=== PATIENT | female | born 1995 | race American Indian/Alaskan Native ===

== ENCOUNTER 2017-08-21 07:25 | Emergency (ER) | payer OTHER ==
[2017-08-21] MEDS ORDERED: TORADOL IM ONE (08:01)
[2017-08-21] MEDS ORDERED: PERCOCET 5/325 PO ONE (08:01)
--- NOTE | 2017-08-21 08:26 | Emergency Department Report ---
ED Female HPI - General Chief complaint: Abdominal Pain Stated complaint: ABDOMINAL PAIN Time Seen by Provider: 08/21/17 07:54 Source: patient Mode of arrival: Stretcher Limitations: No Limitations - History of Present Illness Initial comments: 21-year-old female with a past medical history of fibroids and dysmenorrhea with cycles presents to the hospital with complaints of severe suprapubic cramps secondary to menstrual pain. Patient started her menstrual cycle this a.m. Pain is moderate to severe in intensity, constant, cramping in nature, and no improvement with Aleve last night. She complains of just some brown spotting without significant bleeding at this time. Last month her period was one week early but otherwise normal. Her period this month is also one week early. Patient has a history of heavy menstrual cycles and has been diagnosed with fibroids visualized on ultrasound in March during a recent miscarriage evaluation. Patient is sexually active with one partner and intermittent condom use. She denies prior for STDs and states she is "checked irregularly". Her [employer] doctor is Dr. Tyson Rand affiliated - Related Data Previous Rx's Medication Instructions Recorded Last Taken Type HYDROcodone/APAP 5-325 [[place] 1 each PO Q6HR PRN #20 tablet 08/21/17 Unknown Rx 5/325] Ibuprofen [Motrin] 800 mg PO Q8HR PRN #30 tablet 08/21/17 Unknown Rx Allergies Allergy/AdvReac Type Severity Reaction Status Date / Time No Known Allergies Allergy Unverified 08/21/17 07:45 ED Review of Systems ROS: Stated complaint: ABDOMINAL PAIN Other details as noted in HPI Comment: All other systems reviewed and negative Other: Constitutional: No fevers chills Eyes: No eye pain visual changes ENT: No ear pain or throat pain Neck: Denies pain Respiratory: Denies cough wheezing shortness of breath Cardiovascular: Denies chest pain, palpitations, syncope GI: As per HPI : Denies dysuria Musculoskeletal: Denies back pain, joint swelling Skin: Denies rash, lesions, erythema Neurologic: Denies headache, numbness, weakness Psychiatric: Denies suicidal ideation, hallucinations ED Past Medical Hx - Past Medical History Additional medical history: miscariage, fibroid - Social History Smoking Status: Never Smoker - Medications Home Medications: Home Medications Medication Instructions Recorded Confirmed Last Taken Type HYDROcodone/APAP 5-325 [[place] 1 each PO Q6HR PRN #20 tablet 08/21/17 Unknown Rx 5/325] Ibuprofen [Motrin] 800 mg PO Q8HR PRN #30 tablet 08/21/17 Unknown Rx ED Physical Exam - General Limitations: No Limitations - Other Other exam information: General: No limitations, patient is alert in no acute distress Head exam: Atraumatic, normocephalic Eyes exam: Normal appearance ENT: Moist mucous membrane, normal oropharynx Neck exam: Normal inspection, full range of motion, no meningismus nontender Respiratory exam: Clear to auscultation bilateral, no wheezes, rales, crackles Cardiovascular: Normal rate and rhythm, normal heart sounds Abdomen: Soft, nondistended, mild suprapubic tenderness, with normal bowel sounds, no rebound, or guarding Extremity: Full range of motion normal inspection no deformity Back: Normal Inspection, full range of motion, no tenderness Neurologic: Alert, oriented x3, cranial nerves intact, no motor or sensory deficit Psychiatric: normal affect, normal mood Skin: Warm, dry, intact ED Course Vital Signs 08/21/17 08/21/17 08/21/17 07:38 08:12 08:15 Temperature 97.9 F Pulse Rate 86 Respiratory 14 Rate Blood Pressure 112/60 106/44 Blood Pressure [Left] O2 Sat by Pulse 97 99 100 Oximetry 08/21/17 08/21/17 08/21/17 08:18 08:30 08:34 Temperature 98.0 F Pulse Rate 85 Respiratory 18 18 Rate Blood Pressure 106/44 Blood Pressure 114/56 [Left] O2 Sat by Pulse 100 100 Oximetry 08/21/17 08/21/17 08/21/17 08:35 08:45 09:00 Temperature Pulse Rate Respiratory 18 Rate Blood Pressure 117/66 120/66 Blood Pressure [Left] O2 Sat by Pulse 100 100 Oximetry 08/21/17 08/21/17 09:16 09:30 Temperature Pulse Rate Respiratory Rate Blood Pressure 102/63 117/67 Blood Pressure [Left] O2 Sat by Pulse 96 100 Oximetry - Reevaluation(s) Reevaluation #1: 08/21/17 09:47 pt feeling better after ED treatment ED Medical Decision Making - Lab Data Result diagrams: 08/21/17 08:49 Lab Results 08/21/17 08/21/17 Range/Units 08:04 08:49 WBC 10.0 (4.5-11.0) K/mm3 RBC 4.65 (3.65-5.03) M/mm3 Hgb 11.5 (10.1-14.3) gm/dl Hct 36.4 (30.3-42.9) % MCV 78 L (79-97) fl MCH 25 L (28-32) pg MCHC 32 (30-34) % RDW 13.9 (13.2-15.2) % Plt Count 324 (140-440) K/mm3 Lymph % (Auto) Shirt Presser [place] % (Auto) Shirt Presser Eos % (Auto) Shirt Presser Baso % (Auto) Shirt Presser Lymph # Shirt Presser [place] # Shirt Presser Eos # Shirt Presser Baso # Shirt Presser Seg Neutrophils % Shirt Presser Seg Neutrophils # Shirt Presser HCG, Quant < 2 (0-4) mIU/mL - Medical Decision Making Patient had a dysmenorrhea Similar symptoms in the past Improved with Motrin and Percocet CBC normal and negative. - Differential Diagnosis uterine fibroids, , ectopic, dysmenorrhea, cervicitis, vaginitis Critical Care Time: No Critical care attestation.: If time is entered above; I have spent that time in minutes in the direct care of this critically ill patient, excluding procedure time. ED Disposition Clinical Impression: Dysmenorrhea Disposition: DC-01 TO HOME OR SELFCARE Is pt being admited?: No Does the pt Need Aspirin: No Condition: Good Instructions: Dysmenorrhea (ED) Additional Instructions: Take the medication as prescribed. Follow-up with your [employer] doctor. Return if worsen Prescriptions: HYDROcodone/APAP 5-325 [[place] 5/325] 1 each PO Q6HR PRN #20 tablet PRN Reason: Pain Ibuprofen [Motrin] 800 mg PO Q8HR PRN #30 tablet PRN Reason: Pain Referrals: your, ironer [Other] - 3-5 Days Forms: Work/School Release Form(ED) Time of Disposition: 10:00
[2017-08-21 09:05] LABS: Hematocrit 36.4 % (30.3-42.9); Hemoglobin 11.5 gm/dl (10.1-14.3); Mean Corpuscular HGB Conc 32 % (30-34); Mean Corpuscular Volume 78 fl (79-97); Platelet Count 324 K/mm3 (140-440); Red Blood Count 4.65 M/mm3 (3.65-5.03); Red Cell Distribution Width 13.9 % (13.2-15.2)
[2017-08-21 09:33] LABS: Mean Corpuscular Hemoglobin 25 pg (28-32)
[2017-08-21 11:42] VITALS: BP 110/51
== END 2017-08-21 11:21 | disposition home or self-care (01) ==
LOC: ED 07:25
DX: N94.6 Dysmenorrhea, unspecified (principal)
CPT/HCPCS: 36415; 84702; 85025; 96372; 99284; J1885

== ENCOUNTER 2017-12-23 18:26 | Emergency (ER) | payer MEDICAID, OTHER ==
[2017-12-23 19:06] LABS: Bacteria,Urine 2+ /HPF (Negative); Mucus,Urine 3+ /HPF; Sperm,Urine FEW /HPF (NP)
[2017-12-23 19:12] LABS: Amphetamine Screen,Urine PRESUMPTIVE NEGATIVE; Benzodiazepines Screen,Urine PRESUMPTIVE NEGATIVE; Cannabinoid Screen,Urine PRESUMPTIVE NEGATIVE; Cocaine Screen,Urine PRESUMPTIVE NEGATIVE; Methadone Screen,Urine PRESUMPTIVE NEGATIVE; Opiate Screen,Urine PRESUMPTIVE NEGATIVE
[2017-12-23 19:23] LABS: Bilirubin,Urine NEG (Negative); Blood,Urine LG (Negative); Color,Urine Amber (Yellow); Urobilinogen,Urine < 2.0 mg/dL (<2.0)
[2017-12-23 19:25] LABS: RBC,Urine > 182.0 /HPF (0.0-6.0)
[2017-12-23] MEDS ORDERED: TYLENOL ONE (20:57)
[2017-12-23] MEDS ORDERED: TYLENOL PO ONE (21:13)
[2017-12-23 21:50] LABS: Bilirubin,Urine NEG (Negative); Blood,Urine NEG (Negative); Color,Urine Yellow (Yellow); Mucus,Urine 3+ /HPF; Urobilinogen,Urine < 2.0 mg/dL (<2.0)
[2017-12-23 21:54] LABS: Basophils % (Auto) 0.1 % (0.0-1.8); Hematocrit 33.5 % (30.3-42.9); Hemoglobin 10.5 gm/dl (10.1-14.3); Lymphocytes # (Auto) 1.4 K/mm3 (1.2-5.4); Lymphocytes % (Auto) 8.8 % (13.4-35.0); Mean Corpuscular HGB Conc 31 % (30-34); Mean Corpuscular Volume 80 fl (79-97); Monocytes # (Auto) 0.7 K/mm3 (0.0-0.8); Monocytes % (Auto) 4.4 % (0.0-7.3); Platelet Count 292 K/mm3 (140-440); Red Blood Count 4.16 M/mm3 (3.65-5.03); Red Cell Distribution Width 14.1 % (13.2-15.2)
--- NOTE | 2017-12-23 22:00 | Emergency Department Report ---
ED Abdominal Pain HPI - General Chief Complaint: Abdominal Pain Time Seen by Provider: 12/23/17 21:52 Source: patient Mode of arrival: Ambulatory Limitations: No Limitations - History of Present Illness Initial Comments: This 17 week 22-year-old woman presents with left sided abdominal pain radiating to her left back for the past day or 2. She does not have a fever chills or diaphoresis. She has not had any vaginal bleeding, and last checkup was stable. She is a prima , 17 weeks gestation, with normal ultrasound previously. She has not had any fever chills or diaphoresis, but she has had some nausea, no vomiting, no diarrhea, as well she has had burning on urination over the past few days. She is in good general health otherwise. MD Complaint: flank pain (left side, radiating to her left back) Onset/Timin -: Gradual, days(s) Location: L flank Radiation: back Migration to: no migration Severity: moderate Severity scale (0 -10): 6 Quality: stabbing, aching Consistency: constant Improves With: nothing Worsens With: movement Associated Symptoms: nausea - Related Data Previous Rx's Medication Instructions Recorded Last Taken Type HYDROcodone/APAP 5-325 [[place] 1 each PO Q6HR PRN #20 tablet 08/21/17 Unknown Rx 5/325] Ibuprofen [Motrin] 800 mg PO Q8HR PRN #30 tablet 08/21/17 Unknown Rx Amoxicillin/Potassium Clav 1 each PO TID #30 tablet 12/23/17 Unknown Rx [Augmentin 875-125 Tablet] HYDROcodone/ACETAMINOPHEN [[place] 1 each PO Q4-6H PRN #20 tablet 12/23/17 Unknown Rx 5-325 Tablet] Ondansetron [Zofran ODT TAB] 8 mg PO Q8HR PRN #5 tab.rapdis 12/23/17 Unknown Rx Allergies Allergy/AdvReac Type Severity Reaction Status Date / Time No Known Allergies Allergy Verified 12/23/17 21:05 ED Review of Systems ROS: Stated complaint: Other details as noted in HPI Comment: All other systems reviewed and negative Constitutional: denies: chills, diaphoresis, fever, malaise, weakness ENT: denies: throat pain Respiratory: denies: cough, orthopnea, shortness of breath Cardiovascular: denies: chest pain, palpitations Endocrine: no symptoms reported Gastrointestinal: nausea. denies: vomiting, diarrhea, constipation, hematemesis Genitourinary: dysuria (with discomfort at end of urination). denies: hematuria , discharge Musculoskeletal: back pain (left flank and left costovertebral area of back) Skin: denies: rash, lesions Neurological: denies: headache, weakness, paresthesias Psychiatric: denies: anxiety, depression Hematological/Lymphatic: denies: easy bleeding, easy bruising ED Past Medical Hx - Past Medical History Additional medical history: miscariage, fibroid - Surgical History Past Surgical History?: No - Social History Smoking Status: Never Smoker Substance Use Type: None - Medications Home Medications: Home Medications Medication Instructions Recorded Confirmed Last Taken Type HYDROcodone/APAP 5-325 [[place] 1 each PO Q6HR PRN #20 tablet 08/21/17 Unknown Rx 5/325] Ibuprofen [Motrin] 800 mg PO Q8HR PRN #30 tablet 08/21/17 Unknown Rx Amoxicillin/Potassium Clav 1 each PO TID #30 tablet 12/23/17 Unknown Rx [Augmentin 875-125 Tablet] HYDROcodone/ACETAMINOPHEN [[place] 1 each PO Q4-6H PRN #20 tablet 12/23/17 Unknown Rx 5-325 Tablet] Ondansetron [Zofran ODT TAB] 8 mg PO Q8HR PRN #5 tab.rapdis 12/23/17 Unknown Rx ED Physical Exam - General Limitations: No Limitations General appearance: alert, in distress ([id number] discomfort, even on stretcher, but able to rest and watch TV) - Head Head exam: Present: atraumatic, normocephalic - Eye Eye exam: Present: normal appearance - ENT ENT exam: Present: normal exam, mucous membranes moist - Neck Neck exam: Present: normal inspection, full ROM. Absent: tenderness - Respiratory Respiratory exam: Present: normal lung sounds bilaterally. Absent: respiratory distress, wheezes, rales, rhonchi, chest wall tenderness - Cardiovascular Cardiovascular Exam: Present: regular rate, normal heart sounds. Absent: JVD - GI/Abdominal GI/Abdominal exam: Present: soft, tenderness (left flank), normal bowel sounds - Extremities Exam Extremities exam: Present: normal inspection, full ROM. Absent: pedal edema - Back Exam Back exam: Present: full ROM, CVA tenderness (L). Absent: CVA tenderness (R), muscle spasm, paraspinal tenderness, vertebral tenderness - Neurological Exam Neurological exam: Present: alert, oriented X3, CN II-XII intact. Absent: motor sensory deficit - Psychiatric Psychiatric exam: Present: normal affect, normal mood - Skin Skin exam: Present: warm, dry, intact, normal color. Absent: rash ED Course Vital Signs 12/23/17 12/23/17 12/23/17 19:24 19:25 21:03 Temperature 36.8 C Pulse Rate 120 H 114 H 100 H Respiratory 20 Rate Blood Pressure 133/77 131/70 O2 Sat by Pulse 86 100 Oximetry 12/23/17 22:37 Temperature Pulse Rate Respiratory 16 Rate Blood Pressure O2 Sat by Pulse Oximetry ED Medical Decision Making - Lab Data Result diagrams: 12/23/17 21:36 12/23/17 21:36 Urinalysis shows significant pyuria as well as bacteriuria - Radiology Data Radiology results: report reviewed (transvaginal ultrasound is essentially normal, with intact intrauterine , dated 17 weeks, 5 days, with no signs of placenta previa, no hemorrhage, no mass, no free fluid.) - Medical Decision Making This second trimester primigravida Woman has a pyelonephritis causing left flank pain. Although she is uncomfortable, she is physiologically stable, able keep fluids down, is not vomiting, has no fever. She has an elevated white count, and she has significant pyuria. She was treated with an initial dose of Rocephin, and will be discharged with continued treatment with generic Augmentin, medication for discomfort with hydrocodone, and a prescription of ondansetron if she develops any nausea. She currently has a follow-up appointment with steamboat inspector in 3 days, and this should be appropriate time for follow-up. Patient is to return if she has any recurrent symptoms. - Differential Diagnosis pyelonephritis, ovarian cyst, threatened , placental abruption Critical Care Time: No Critical care attestation.: If time is entered above; I have spent that time in minutes in the direct care of this critically ill patient, excluding procedure time. ED Disposition Clinical Impression: Pyelonephritis affecting in second trimester Disposition: DC-01 TO HOME OR SELFCARE Is pt being admited?: No Does the pt Need Aspirin: No Condition: Stable Instructions: Acute Pyelonephritis (ED) Additional Instructions: We are treating you for a kidney infection, with Augmentin, to be taken 3 times daily for the next week. We also treated any discomfort that she may have with hydrocodone, which can be taken every 4-6 hours as needed for significant pain. Check temperatures regularly, and treat any fever with Tylenol, every 4 hours, as needed, as fever may return while you are ill. We have provided a prescription for ondansetron, which she may take if you develop any nausea. You may repeat this every 8-12 hours if you have continued nausea. Be sure to drink plenty of fluids in order to stay well-hydrated, as this will make you feel more comfortable. Have recheck by your steamboat inspector in 4 days as previously scheduled, but he may return to the emergency department any time if you feel much worse, either with fever, vomiting, or increased pain. Prescriptions: Amoxicillin/Potassium Clav [Augmentin 875-125 Tablet] 1 each PO TID #30 tablet HYDROcodone/ACETAMINOPHEN [[place] 5-325 Tablet] 1 each PO Q4-6H PRN #20 tablet PRN Reason: Pain Ondansetron [Zofran ODT TAB] 8 mg PO Q8HR PRN #5 tab.rapdis PRN Reason: Nausea Referrals: PRIMARY CARE, [Primary Care Provider] - 3-5 Days Time of Disposition: 23:42
[2017-12-23 22:01] LABS: Mean Corpuscular Hemoglobin 25 pg (28-32)
[2017-12-23 22:04] LABS: BUN/Creatinine Ratio 12; Blood Urea Nitrogen 7 mg/dL (7-17); Calcium 9.5 mg/dL (8.4-10.2); Hemolysis Index 19
--- NOTE | 2017-12-23 22:59 | Ultrasound Report ---
FINAL REPORT PROCEDURE: Obstetrical ultrasound. TECHNIQUE: Real-time transabdominal sonography of the uterus, placenta, amniotic fluid, adnexa, and fetus was performed with image documentation. Measurements were obtained to determine age/size. M-mode Doppler was used to document heartbeat. CPT 05237 HISTORY: , abdominal pain. COMPARISON: No prior studies are available for comparison. FINDINGS: There is a single intrauterine fetus in breech presentation. Cardiac activity is documented at 162 beats per minute. A detailed anatomical survey was not performed. The amniotic fluid volume appears normal. The placenta is anterior in location with no evidence of placenta previa. The cervix measures 3.3 centimeters in length. The measured parameters are as follows: Biparietal diameter 3.9 centimeters, head circumference 14.8 centimeters, abdominal circumference 11.9 centimeters, femur length 2.5 centimeters. The calculated menstrual age is 17 weeks 5 days. The estimated date of confinement is 05/28/2018. The estimated weight is currently 201 grams. IMPRESSION: Viable fetus in breech presentation with a menstrual age of 17 weeks 5 days.
[2017-12-23] MEDS ORDERED: ROCEPHIN/NS 1 GM/50 ML 1 GM/50 ML BAG IV ONE (23:09)
[2017-12-23] MEDS ORDERED: MORPHINE IV ONE (23:11)
[2017-12-23] MEDS ORDERED: ZOFRAN IV ONE (23:12)
[2017-12-23] MEDS ORDERED: cefTRIAXone 1 GM in NACL 0.9% 20 ML IV ONE (23:45)
[2017-12-23] MEDS ORDERED: MORPHINE ONE (23:59)
[2017-12-24] MEDS ORDERED: ZOFRAN ONE ×2
[2017-12-24 00:47] VITALS: BP 102/51
== END 2017-12-24 00:46 | disposition home or self-care (01) ==
LOC: ED 18:26 → TRG 18:26 → EDSTATUS 20:35 → ED 12-24 00:46
DX: O23.02 Infections of kidney in pregnancy, second trimester (principal); N12 Tubulo-interstitial nephritis, not specified as acute or chronic; Z3A.17 17 weeks gestation of pregnancy
CPT/HCPCS: 36415; 76805; 80048; 80307; 81001; 84702; 85025; 96374; 96375; 99284; J0696; J2270; J2405